=== PATIENT | male | born 1995 | race Caucasian/White ===

== ENCOUNTER 2017-06-03 00:20 | Emergency (ER) | payer OTHER ==
[~2017-06-03] VITALS: Ht 180.3 cm; Wt 74.8 kg
[2017-06-03] MEDS ORDERED: ADDERALL 30 MG30 MG PO (00:31)
[2017-06-03] MEDS ORDERED: BUPRENORPHINE HC8 MG SUBLING (00:33)
[2017-06-03] MEDS ORDERED: ROBAXIN500 MG PO (00:52)
[2017-06-03] MEDS ORDERED: TRAMADOL 50 MG50 MG PO (00:52)
[2017-06-03 01:03] VITALS: BP 124/75
== END 2017-06-03 01:08 | disposition home or self-care (01) ==
LOC: ER 00:20 → EDBD 00:20 → ER 01:08
DX: S80.01XA Contusion of right knee, initial encounter (principal); M54.2 Cervicalgia; Z88.6 Allergy status to analgesic agent; V43.62XA Car passenger injured in collision with other type car in traffic accident, initial encounter; Y93.89 Activity, other specified; Y92.89 Other specified places as the place of occurrence of the external cause; Y99.8 Other external cause status